=== PATIENT | female | born 1970 | race Caucasian/White ===

== ENCOUNTER 2021-12-10 15:39 | Emergency (ER) | payer MEDICAID ==
[~2021-12-10] VITALS: Ht 165.1 cm; Wt 114.5 kg
[~2021-12-10 15:39] MED LIST: ARIP10TA15 PO; ASPI-1 PO
[2021-12-10] MEDS ORDERED: LORazepam 1 MG tablet PO ONE (16:30)
--- NOTE | 2021-12-10 17:15 | NUR ---
pt to MRI
[2021-12-10 19:11] VITALS: BP 125/79
== END 2021-12-10 19:13 | disposition home or self-care (01) ==
LOC: ER 15:40
DX: M54.50 Low back pain, unspecified (principal); G89.29 Other chronic pain; R32 Unspecified urinary incontinence; R15.9 Full incontinence of feces; I10 Essential (primary) hypertension; F41.9 Anxiety disorder, unspecified; F32.A Depression, unspecified; Z90.710 Acquired absence of both cervix and uterus; Z98.890 Other specified postprocedural states; Z88.0 Allergy status to penicillin; Z88.1 Allergy status to other antibiotic agents; Z88.8 Allergy status to other drugs, medicaments and biological substances; Z79.82 Long term (current) use of aspirin; Z79.899 Other long term (current) drug therapy
CPT/HCPCS: 72148; 99284

== ENCOUNTER 2023-09-09 10:52 | Day surgery (SDC) | payer MEDICAID ==
[2023-09-02 15:13] LABS: BASOPHILS # (AUTO) 0.1 X10'3 (0-0.2); BASOPHILS % (AUTO) 1.3 % (0-1); EOSINOPHILS # (AUTO) 0.2 X10'3 (0-0.9); EOSINOPHILS % (AUTO) 2.2 % (0-6); LYMPHOCYTES # (AUTO) 2.4 X10'3 (1.1-4.8); LYMPHOCYTES % (AUTO) 33.6 % (21-51); MEAN CORPUSCULAR HEMOGLOBIN 26.5 PG (27.0-31.0); MEAN CORPUSCULAR HGB CONC 32.8 g/dL (33.0-36.5); MEAN CORPUSCULAR VOLUME 80.8 FL (78-98); MEAN PLATELET VOLUME 6.8 FL (7.4-10.4); MONOCYTES # (AUTO) 0.5 X10'3 (0-0.9); MONOCYTES % (AUTO) 7.3 % (2-12); NEUTROPHILS % (AUTO) 55.6 % (42-75); PRE OP HEMOGLOBIN 13.8 g/dL (12.0-16.0); PRE OP PLATELET COUNT 306 X10'3 (140-440); PRE OP WHITE BLOOD COUNT 7.1 10'3 (4.8-10.8); RED CELL DISTRIBUTION WIDTH 14.9 % (11.5-14.5)
[2023-09-02 15:16] LABS: BILIRUBIN,URINE NEGATIVE (Neg); CLARITY,URINE SLIGHTLY CLOUDY (Clear); COLOR,URINE YELLOW (Yellow); GLUCOSE, URINE NEGATIVE (Neg); KETONES,URINE NEGATIVE (Neg); LEUKOCYTE ESTERASE ,URINE NEGATIVE (Neg); NITRITES, URINE NEGATIVE (Neg); OCCULT BLOOD,URINE NEGATIVE (Neg); PH,URINE 5.5 (4.8-8.0); PROTEIN,URINE NEGATIVE (Neg); UROBILINOGEN,URINE 0.2 E.U/dL (0.2-1.0)
[2023-09-02 15:21] LABS: SQUAMOUS EPITHELIAL CELL,UR MANY /LPF (FEW); UA COLLECTION TYPE NON-SPECIFIED
[2023-09-02 15:22] LABS: BACTERIA,URINE FEW /HPF (Neg); RBC,URINE 0-2 /HPF (0-2); WBC,URINE 0-4 /HPF (0-4)
[2023-09-02 15:28] LABS: ALBUMIN 3.5 G/DL (3.4-5.0); ALBUMIN/GLOBULIN RATIO 0.9 (1.1-1.5); ALKALINE PHOSPHATASE 101 IU/L (46-116); BLOOD UREA NITROGEN 13 MG/DL (7-18); BUN/CREATININE RATIO 17.1 (10.0-20.0); CHLORIDE 103 MMOL/L (99-107); CREATININE 0.76 MG/DL (0.40-0.90); PRE OP ALT 73 U/L (30-65); PRE OP ANION GAP 4 (8-16); PRE OP AST 25 U/L (10-37); PRE OP BILIRUB, TOTAL 0.4 MG/DL (0.0-1.0); PRE OP GLUCOSE 76 MG/DL (70-104); PRE OP POTASSIUM 4.1 MMOL/L (3.4-5.1); PRE OP SODIUM 137 MMOL/L (135-145); TOTAL CARBON DIOXIDE 30.3 MMOL/L (24-32); TOTAL PROTEIN 7.3 G/DL (6.4-8.2); eGFR 80 ML/MIN
[2023-09-09] VITALS (11 sets, daily range): BP systolic 104–124; BP diastolic 53–66; PULSE 86–102; RESP 13–16; TEMP 98; O2SAT 93–100
[~2023-09-09] VITALS: Ht 165.1 cm; Wt 121.9 kg
[2023-09-09] MEDS: clindamycin 600mg/D5W 50ml 50 ML IV ONE (05:30)
[~2023-09-09 10:52] MED LIST changes: +ALBU8HFA; -ARIP10TA15 PO; +ARIP20TA21; -ASPI-1 PO; +BUDE10.2 PO; +CLON-370 PO; +EZET10TA48 PO; +HYDR50TA65 PO; +LEVO137T2; +PANT40TA54 PO; +PRAV20TA4 PO; +TIOT4MIS2 INH; +VENL150C58 PO; +VENL75CA61 PO; +cefazolin 2gm/D5W 100mL 100 ML IV ONE
[2023-09-09] MEDS: famotidine 20mg tablet PO ONE (12:33)
[2023-09-09] MEDS: ringers solution, lacted 1,000 ML IV SCH (12:34)
[2023-09-09] MEDS ORDERED: BUPIVAcaine 2.5mg/ml inj 50ml vial (contains preservative) ONE (12:44)
[2023-09-09] MEDS ORDERED: bacitracin 15gm ointment TP ONE (12:44)
[2023-09-09] MEDS ORDERED: meperidine/PF 25mg/ml syringe IV PRN ×3 (13:20)
[2023-09-09] MEDS ORDERED: morphine 4 MG/ML inj SYRINge IV PRN (13:20)
[2023-09-09] MEDS ORDERED: enalaprilat dihydrate 2.5mg/2ml vial IV PRN (13:20)
[2023-09-09] MEDS ORDERED: morphine 2 MG/ML inj. syringe IV PRN (13:20)
[2023-09-09] MEDS ORDERED: ringers solution, lacted 1,000 ML IV SCH (13:20)
[2023-09-09] MEDS ORDERED: ondansetron/PF 4mg/2ml inj IV PRN (13:20)
[2023-09-09] MEDS ORDERED: proCHLORperazine 10 MG/2 ml inj IV PRN (13:20)
[2023-09-09] MEDS ORDERED: labetalol 20mg/4ml (5mg/ml) syringe IV PRN (13:20)
[2023-09-09] MEDS ORDERED: sevoflurane 250ml liquid IH ONE (13:47)
[2023-09-09] MEDS ORDERED: fentaNYL/PF 50MCG/1 ML 2ML syringe ONE (13:50)
[2023-09-09] MEDS ORDERED: MIDAZolam 1 MG/ML 5ML VIAL ONE (13:51)
[2023-09-09] MEDS ORDERED: rocuronium 10mg/ml inj IV ONE (14:11)
[2023-09-09] MEDS ORDERED: LIDOcaine 1%/PF 5ML 10 MG/ML VIAL ONE (14:11)
[2023-09-09] MEDS ORDERED: propofol inj 20 ML IV ONE (14:11)
[2023-09-09] MEDS ORDERED: dexamethasone sod phosphate 4mg/ml inj. ONE (15:11)
[2023-09-09] MEDS ORDERED: neostigmine methylsulfate 1 MG/ML 10ml vial ONE (15:15)
[2023-09-09] MEDS ORDERED: glycopyrrolate 0.2mg/ml inj ONE (15:15)
[2023-09-09] MEDS ORDERED: sugammadex 200mg/2ml injection IV ONE (15:20)
== END 2023-09-09 16:40 | disposition home or self-care (01) ==
LOC: PAS 10:52
PROVIDERS: ATTEND Podiatrist Foot & Ankle Surgery
DX: M76.62 Achilles tendinitis, left leg (principal); M92.62 Juvenile osteochondrosis of tarsus, left ankle; G89.18 Other acute postprocedural pain; E66.01 Morbid (severe) obesity due to excess calories; E78.5 Hyperlipidemia, unspecified; J44.9 Chronic obstructive pulmonary disease, unspecified; E89.0 Postprocedural hypothyroidism; Z87.891 Personal history of nicotine dependence; Z79.890 Hormone replacement therapy; Z79.899 Other long term (current) drug therapy; Z90.49 Acquired absence of other specified parts of digestive tract; Z90.710 Acquired absence of both cervix and uterus; Z90.89 Acquired absence of other organs; Z96.651 Presence of right artificial knee joint; Z98.890 Other specified postprocedural states; Z68.41 Body mass index [BMI] 40.0-44.9, adult; Z88.0 Allergy status to penicillin; Z88.1 Allergy status to other antibiotic agents; Z88.6 Allergy status to analgesic agent; Z88.8 Allergy status to other drugs, medicaments and biological substances; Z80.8 Family history of malignant neoplasm of other organs or systems
CPT/HCPCS: 27650; 28118; 36415; 64445; 73600; 80053; 81001; 82948; 85025; A6222; C1713; J1100; J2250; J2405; J2704; J2710; J3010; J3490; J7030; J7120; Z7506; Z7508; Z7512; 76000; A4215; A4618; A6253; A6449; A7000

== ENCOUNTER 2023-09-12 17:12 | Inpatient (IN) | payer MEDICAID ==
[~2023-09-12] VITALS: Ht 165.1 cm; Wt 112.7 kg
[~2023-09-12 17:12] MED LIST changes: -cefazolin 2gm/D5W 100mL 100 ML IV ONE
[2023-09-12 18:17] LABS: EOSINOPHILS # (AUTO) 0.2 X10'3 (0-0.9); HEMOGLOBIN 14.2 g/dl (12.0-16.0); RED CELL DISTRIBUTION WIDTH 15.1 % (11.5-14.5)
[2023-09-12 18:18] LABS: APTT 24 SECONDS (22-32); BASOPHILS # (AUTO) 0.1 X10'3 (0-0.2); EOSINOPHILS % (AUTO) 3.3 % (0-6); HEMATOCRIT 43.2 % (35.0-45.0); LYMPHOCYTES # (AUTO) 2.2 X10'3 (1.1-4.8); LYMPHOCYTES % (AUTO) 29.1 % (21-51); MEAN CORPUSCULAR VOLUME 81.9 FL (78-98); MEAN PLATELET VOLUME 7.1 FL (7.4-10.4); MONOCYTES # (AUTO) 0.6 X10'3 (0-0.9); MONOCYTES % (AUTO) 7.8 % (2-12); NEUTROPHILS # (AUTO) 4.4 X10'3 (1.8-7.7); NEUTROPHILS % (AUTO) 58.8 % (42-75); PLATELET COUNT 322 X10'3 (140-440); PROTHROMBIN TIME 10.1 SECONDS (9.0-12.0); RED BLOOD COUNT 5.27 X10'6 (4.20-5.60); WHITE BLOOD COUNT 7.4 X10'3 (4.5-11.0)
[2023-09-12 18:47] LABS: ALBUMIN 3.4 G/DL (3.4-5.0); ALBUMIN/GLOBULIN RATIO 0.9 (1.1-1.5); ALKALINE PHOSPHATASE 206 IU/L (46-116); ANION GAP 6 (8-16); ASPARTATE AMINO TRANSFERASE 568 U/L (10-37); BLOOD UREA NITROGEN 12 MG/DL (7-18); BUN/CREATININE RATIO 13.5 (10.0-20.0); CALCIUM 9.5 MG/DL (8.5-10.1); CHLORIDE 101 MMOL/L (99-107); CREATININE 0.89 MG/DL (0.40-0.90); GLUCOSE 97 MG/DL (70-104); SODIUM 139 MMOL/L (135-145); TOTAL CARBON DIOXIDE 31.6 MMOL/L (24-32); TOTAL PROTEIN 7.4 G/DL (6.4-8.2); eCRCL 66 ML/MIN; eGFR 66 ML/MIN
[2023-09-12 18:49] LABS: LIPASE 20 U/L (16-77); PRO BRAIN NATRIURETIC PEPTIDE 430 PG/ML (0-125)
[2023-09-12 18:53] LABS: ALANINE AMINOTRANSFERASE 1318 U/L (12-78)
[2023-09-12] MEDS: oxyCODONE IR 5mg (immed. release) tablet PO ONE (19:30)
[2023-09-12] MEDS ORDERED: iohexol 350MG/ML 100ml bottle IV ONE (19:36)
[2023-09-12] MEDS ORDERED: magnesium hydroxide 30ml (MOM) UD suspension PO PRN (22:40)
[2023-09-12] MEDS ORDERED: morphine 2 MG/ML inj. syringe IV PRN (22:40)
[2023-09-12] MEDS ORDERED: diphenhydrAMINE 25mg capsule PO PRN (22:40)
[2023-09-12] MEDS ORDERED: mag hydrox/Alum hydrox/simeth 30ml oral suspension PO PRN (22:40)
[2023-09-12] MEDS ORDERED: bisacodyl 10mg suppository rectal RC PRN (22:40)
[2023-09-12] MEDS ORDERED: diphenhydrAMINE 50 mg/ml inj IV PRN (22:40)
[2023-09-12] MEDS ORDERED: ondansetron 4mg rapidly disintigrating tab PO PRN (22:40)
[2023-09-12] MEDS ORDERED: acetaminophen 650mg rectal suppository RC PRN (22:40)
[2023-09-12] MEDS ORDERED: acetaminophen 325mg tablet PO PRN ×2 (22:40)
[2023-09-12] MEDS ORDERED: HYDROcodone/acetaminophen 5mg/325mg tablet PO PRN (22:40)
[2023-09-12] MEDS ORDERED: metoprolol tartrate 1mg/ml inj IV PRN (22:45)
[2023-09-12] MEDS ORDERED: regadenoson 0.4mg/5ml syringe IV PRN (22:45)
[2023-09-12] MEDS ORDERED: nitroGLYCERIN 0.4mg SUBLingual tab SL PRN (22:45)
[2023-09-12] MEDS ORDERED: aminophylline 250mg/10ml inj. IV PRN (22:45)
[2023-09-12 23:15] LABS: HEMOGLOBIN A1C 6.3 % (4.5-6.2)
[2023-09-12 23:17] LABS: MAGNESIUM 1.8 MG/DL (1.5-2.4); PHOSPHORUS 4.8 MG/DL (2.3-4.5); THYROID STIMULATING HORMONE 0.69 ulU/ml (0.34-4.50)
[2023-09-12] MEDS: aspirin 81mg, enteric-coated 1 TAB TABLET.DR PO SCH (23:31)
[2023-09-12] MEDS: normal saline 1000ml 1,000 ML IV SCH (23:31)
[2023-09-12] MEDS: heparin, porcine 5000 units/ml vial SQ SCH (23:31)
[2023-09-12] MEDS: temazepam 15mg capsule PO PRN (23:38)
[2023-09-12] MEDS: morphine 2 MG/ML inj. syringe IV PRN (23:38)
[2023-09-13] VITALS (8 sets, daily range): BP systolic 109–133; BP diastolic 52–92; PULSE 70–83; RESP 13–18; TEMP 97.6–98.6; O2SAT 90–99
[2023-09-13] MEDS: HYDROcodone/acetaminophen 10/325mg tab PO PRN (03:38)
[2023-09-13 05:56] LABS: APTT 24 SECONDS (22-32); PROTHROMBIN TIME 10.3 SECONDS (9.0-12.0)
[2023-09-13 06:04] LABS: BASOPHILS % (AUTO) 0.9 % (0-1); EOSINOPHILS # (AUTO) 0.2 X10'3 (0-0.9); HEMOGLOBIN 13.2 g/dl (12.0-16.0); MONOCYTES # (AUTO) 0.4 X10'3 (0-0.9); NEUTROPHILS # (AUTO) 2.7 X10'3 (1.8-7.7)
[2023-09-13 06:06] LABS: ALBUMIN/GLOBULIN RATIO 0.8 (1.1-1.5); ALKALINE PHOSPHATASE 202 IU/L (46-116); ANION GAP 3 (8-16); ASPARTATE AMINO TRANSFERASE 387 U/L (10-37); BILIRUBIN,TOTAL 0.9 MG/DL (0.1-1.0); BLOOD UREA NITROGEN 14 MG/DL (7-18); BUN/CREATININE RATIO 17.3 (10.0-20.0); CALCIUM 9.2 MG/DL (8.5-10.1); CHLORIDE 102 MMOL/L (99-107); CHOL/HDL RATIO 4.3 (0.00-4.99); CHOLESTEROL 240 MG/DL (0-200); CREATININE 0.81 MG/DL (0.40-0.90); GLUCOSE 98 MG/DL (70-104); HDL CHOLESTEROL 56 MG/DL (35-60); LDL CHOLESTEROL 140 MG/DL (50-100); POTASSIUM 3.8 MMOL/L (3.5-5.1); PRO BRAIN NATRIURETIC PEPTIDE 311 PG/ML (0-125); SODIUM 139 MMOL/L (135-145); TOTAL CARBON DIOXIDE 34.5 MMOL/L (24-32); TOTAL PROTEIN 6.7 G/DL (6.4-8.2); TRIGLYCERIDES 197 MG/DL (20-135); eCRCL 72 ML/MIN; eGFR 74 ML/MIN
[2023-09-13 06:07] LABS: EOSINOPHILS % (AUTO) 4.2 % (0-6); HEMATOCRIT 39.9 % (35.0-45.0); LYMPHOCYTES # (AUTO) 1.8 X10'3 (1.1-4.8); LYMPHOCYTES % (AUTO) 35.3 % (21-51); MEAN CORPUSCULAR HEMOGLOBIN 27.2 PG (27.0-31.0); MEAN CORPUSCULAR HGB CONC 33.1 g/dL (33.0-36.5); MEAN PLATELET VOLUME 7.1 FL (7.4-10.4); NEUTROPHILS % (AUTO) 51.6 % (42-75); PLATELET COUNT 264 X10'3 (140-440); RED BLOOD COUNT 4.87 X10'6 (4.20-5.60); RED CELL DISTRIBUTION WIDTH 14.9 % (11.5-14.5); WHITE BLOOD COUNT 5.2 X10'3 (4.5-11.0)
[2023-09-13 06:11] LABS: ALANINE AMINOTRANSFERASE 1146 U/L (12-78)
[2023-09-13 06:34] LABS: HIV ANTIBODY 1&2 RAPID NON-REACTIVE (Neg)
[2023-09-13] MEDS ORDERED: clonazePAM 1mg tablet PO PRN (08:55)
[2023-09-13] MEDS: atorvastatin 10mg tablet PO SCH (09:35)
[2023-09-13] MEDS: ipratropium 0.5 MG/2.5ML nebule NEB SCH (09:36)
[2023-09-13] MEDS: pantoprazole 40mg Tablet.DR PO SCH (09:58)
[2023-09-13] MEDS: venlafaxine XR 75mg capsule (Q24H) PO SCH ×2 (09:58)
[2023-09-13] MEDS: hydrOXYzine 25 MG tablet PO SCH (09:59)
[2023-09-13] MEDS: docusate sod 100mg capsule PO SCH (09:59)
[2023-09-13] MEDS: ondansetron/PF 4mg/2ml inj IV PRN (14:53)
[2023-09-13] MEDS: nystatin 15 GM powder TP SCH (20:32)
[2023-09-14] VITALS (11 sets, daily range): BP systolic 116–187; BP diastolic 55–110; PULSE 72–110; RESP 14–18; TEMP 97–97.2; O2SAT 92–99
[2023-09-14] MEDS: ezetimibe 10mg tablet PO SCH (08:00)
[2023-09-14 08:03] LABS: EOSINOPHILS # (AUTO) 0.2 X10'3 (0-0.9); HEMOGLOBIN 13.3 g/dl (12.0-16.0); LYMPHOCYTES # (AUTO) 1.5 X10'3 (1.1-4.8); LYMPHOCYTES % (AUTO) 31.6 % (21-51); MEAN CORPUSCULAR HEMOGLOBIN 26.4 PG (27.0-31.0); MEAN CORPUSCULAR HGB CONC 32.4 g/dL (33.0-36.5); MEAN CORPUSCULAR VOLUME 81.6 FL (78-98); MEAN PLATELET VOLUME 7.1 FL (7.4-10.4); MONOCYTES # (AUTO) 0.3 X10'3 (0-0.9); MONOCYTES % (AUTO) 7.2 % (2-12); NEUTROPHILS # (AUTO) 2.5 X10'3 (1.8-7.7); NEUTROPHILS % (AUTO) 55.2 % (42-75); PLATELET COUNT 288 X10'3 (140-440); RED BLOOD COUNT 5.02 X10'6 (4.20-5.60); RED CELL DISTRIBUTION WIDTH 14.8 % (11.5-14.5); WHITE BLOOD COUNT 4.6 X10'3 (4.5-11.0)
[2023-09-14] MEDS: atorvastatin 20mg tablet PO SCH (08:35)
[2023-09-14 08:42] LABS: ALBUMIN 2.8 G/DL (3.4-5.0); ALBUMIN/GLOBULIN RATIO 0.7 (1.1-1.5); ALKALINE PHOSPHATASE 235 IU/L (46-116); ANION GAP 6 (8-16); ASPARTATE AMINO TRANSFERASE 367 U/L (10-37); BILIRUBIN,TOTAL 2.1 MG/DL (0.1-1.0); BLOOD UREA NITROGEN 11 MG/DL (7-18); BUN/CREATININE RATIO 16.4 (10.0-20.0); CALCIUM 8.7 MG/DL (8.5-10.1); CHLORIDE 101 MMOL/L (99-107); CREATININE 0.67 MG/DL (0.40-0.90); GLUCOSE 96 MG/DL (70-104); POTASSIUM 3.9 MMOL/L (3.5-5.1); SODIUM 137 MMOL/L (135-145); TOTAL CARBON DIOXIDE 30.1 MMOL/L (24-32); TOTAL PROTEIN 6.6 G/DL (6.4-8.2); eCRCL 87 ML/MIN; eGFR > 90 ML/MIN
[2023-09-14 08:51] LABS: ALANINE AMINOTRANSFERASE 1133 U/L (12-78)
[2023-09-14] MEDS: regadenoson 0.4mg/5ml syringe IV ONE (09:52)
[2023-09-14] MEDS ORDERED: PANT40TA54 PO (12:27)
[2023-09-14] MEDS ORDERED: BUDE10.2 PO (12:27)
[2023-09-14] MEDS ORDERED: METO5TAB85 PO (12:27)
[2023-09-14] MEDS ORDERED: ALBU8HFA INH (12:27)
[2023-09-14] MEDS ORDERED: ATOR20TA66 PO (12:27)
[2023-09-14] MEDS ORDERED: NITR0.4T48 SL (14:47)
[2023-09-14] MEDS ORDERED: ASPI81TA52 PO (14:47)
[2023-09-14] MEDS ORDERED: CARV3.122 PO (14:47)
[2023-09-14 18:23] LABS: HEP A AB, IGM Negative (Negative); HEP B CORE AB, IGM Negative (Negative); HEP B CORE AB, TOT Negative (Negative); HEPATITIS C VIRUS ANTIBODY Non Reactive (Non Reactive)
== END 2023-09-14 12:30 | disposition home or self-care (01) | DRG 198 ==
LOC: ER 17:13 → ED HOLD 22:44 → PCU 3S 09-13 02:05
PROVIDERS: ADMIT Family Medicine; ATTEND Family Medicine
PROC: B32T1ZZ Computerized Tomography (CT Scan) of Left Pulmonary Artery using Low Osmolar Contrast (ICD-10-PCS; 2023-09-12)
PROC: B3201ZZ Computerized Tomography (CT Scan) of Thoracic Aorta using Low Osmolar Contrast (ICD-10-PCS; 2023-09-12)
PROC: B32S1ZZ Computerized Tomography (CT Scan) of Right Pulmonary Artery using Low Osmolar Contrast (ICD-10-PCS; 2023-09-12)
PROC: 4A02XM4 Measurement of Cardiac Total Activity, External Approach (ICD-10-PCS; principal; 2023-09-14)
PROC: 3E033HZ Introduction of Radioactive Substance into Peripheral Vein, Percutaneous Approach (ICD-10-PCS; 2023-09-14)
DX: R07.89 Other chest pain (principal); I20.0 Unstable angina; K76.0 Fatty (change of) liver, not elsewhere classified; E11.9 Type 2 diabetes mellitus without complications; F32.A Depression, unspecified; G89.4 Chronic pain syndrome; F41.9 Anxiety disorder, unspecified; K21.9 Gastro-esophageal reflux disease without esophagitis; K44.9 Diaphragmatic hernia without obstruction or gangrene; R74.01 Elevation of levels of liver transaminase levels; E89.0 Postprocedural hypothyroidism; E78.5 Hyperlipidemia, unspecified; E66.01 Morbid (severe) obesity due to excess calories; I10 Essential (primary) hypertension; Z90.710 Acquired absence of both cervix and uterus; Z87.891 Personal history of nicotine dependence; Z88.0 Allergy status to penicillin; Z88.1 Allergy status to other antibiotic agents; Z83.3 Family history of diabetes mellitus; Z90.49 Acquired absence of other specified parts of digestive tract; Z68.41 Body mass index [BMI] 40.0-44.9, adult
CPT/HCPCS: 36415; 71045; 71275; 74176; 76700; 78451; 80053; 80061; 80329; 83036; 83605; 83690; 83735; 83880; 84100; 84145; 84443; 84484; 85025; 85610; 85730; 86703; 86704; 86705; 86709; 86803; 87040; 87081; 87522; 93005; 93017; 94760; 99285; A6213; A6449; A9500; G0378; J1644; J2270; J2405; J2785; J3490; J7030; Q0177; Q9967